=== PATIENT | female | born 1985 | race Caucasian/White ===

== ENCOUNTER 2020-03-20 11:36 | Outpatient (REF) | payer OTHER, SELFPAY ==
[2020-03-20 12:19] LABS: MANUAL DIFF FLAG NO
[2020-03-20 12:24] LABS: Basophils Percent Auto 0.4 % (0-2); Eosinophils Absolute Auto 0.1 X10*3/uL (0.0-0.4); Eosinophils Percent Auto 1.3 % (0-4); Hematocrit 39.2 % (37-47); Imm Gran Abs Auto 0.02 X10*3/uL (0.00-0.03); Imm Gran Pct Auto 0.3 % (0.0-0.4); Lymphocytes Absolute Auto 1.8 X10*3/uL (1.2-4.9); Lymphocytes Percent Auto 22.1 % (20-40); Mean Corpuscular HGB Conc 33.2 g/dl (31.0-35.0); Mean Corpuscular Hemoglobin 30.2 pg (27.0-33.0); Mean Platelet Volume 9.9 fL (9.4-12.3); Monocytes Absolute Auto 0.6 X10*3/uL (0.1-1.2); Monocytes Percent Auto 7.7 % (2-11); Neutrophils Absolute Auto 5.4 X10*3/uL (2.0-8.3); Neutrophils Percent Auto 68.2 % (45-73); Platelet Count 236 X10*3/uL (160-400); Red Blood Count 4.31 X10*6/uL (4.20-5.50); Red Cell Distribution Width 12.3 % (11.0-16.0); White Blood Count 7.9 X10*3/uL (4.8-10.8)
[2020-03-20 13:09] LABS: Alanine Aminotransferase 26 U/L (0-31); Albumin Level 4.4 g/dL (3.5-5.0); Alkaline Phosphatase 78 U/L (39-117); Anion Gap 13 (12-20); Aspartate Amino Transferase 27 U/L (5-31); Bilirubin Total 0.4 mg/dL (0.0-1.0); Blood Urea Nitrogen 15 mg/dL (9-16); Calcium 9.4 mg/dL (8.4-10.2); Carbon Dioxide 27 mmol/L (22-29); Chloride 101 mmol/L (96-108); Cholesterol 211 mg/dL; Estimated Glomerular Filt Rate > 60; Glucose Fasting 90 mg/dL (60-99); HDL Cholesterol 85 mg/dL; LDL Cholesterol Calculated 112 mg/dl; Potassium 4.8 mmol/l (3.3-5.1); Sodium 136 mmol/L (135-145); Total Protein 7.6 g/dL (6.5-8.0); Triglycerides 74 mg/dL
[2020-03-20 13:30] LABS: TSH reflex Free T4 0.58 mIU/mL (0.32-4.0)
== END 2020-03-20 11:37 | disposition home or self-care (01) ==
LOC: HO.LAB 11:36
PROVIDERS: PCP Family Medicine; Visit Provider Family Medicine
DX: Z00.00 Encounter for general adult medical examination without abnormal findings (principal)
CPT/HCPCS: 36415; 80053; 80061; 84443; 85025

== ENCOUNTER 2020-04-26 11:39 | Outpatient (REF) | payer OTHER, SELFPAY ==
[2020-04-26 15:28] LABS: Syphilis Screen Nonreactive (Nonreactive)
[2020-04-27 08:41] LABS: BV Int Neg Control Negative (Negative); BV Int Pos Control Positive (Positive)
[2020-04-27 09:10] LABS: HBsAGNum1 0.58 S/CO (0.00-0.99); HIV AB/AG Nonreactive (Nonreactive); HIV Num 1 0.07 S/CO (0.00-0.99); Hepatitis B Surface Antigen Negative (Negative); ~HepC Num1 0.17 S/CO (0.00-0.79); ~Hepatitis C Antibody Nonreactive (Nonreactive)
[2020-04-28 18:32] LABS: C. trachomatis RNA TMA DETECTED (NOT DETECTED); N. gonorrhoeae RNA TMA NOT DETECTED (NOT DETECTED)
[2020-05-01 12:53] LABS: HPV mRNA E6/E7 Not Detected (Not Detected)
== END 2020-04-26 11:40 | disposition home or self-care (01) ==
LOC: HO.LAB 11:39
PROVIDERS: PCP Family Medicine; Visit Provider Advanced Practice Midwife
DX: Z01.419 Encounter for gynecological examination (general) (routine) without abnormal findings (principal); F41.8 Other specified anxiety disorders; Z20.2 Contact with and (suspected) exposure to infections with a predominantly sexual mode of transmission; Z88.5 Allergy status to narcotic agent; Z97.5 Presence of (intrauterine) contraceptive device
CPT/HCPCS: 36415; 86780; 86803; 87340; 87389; 87480; 87491; 87510; 87591; 87624; 87625; 87660; 88141; 88142; 99395

== ENCOUNTER 2020-06-09 09:57 | Outpatient (REF) | payer OTHER, SELFPAY ==
[2020-06-09 12:57] LABS: Syphilis Screen Nonreactive (Nonreactive)
[2020-06-10 12:04] LABS: BV Int Neg Control Negative (Negative); BV Int Pos Control Positive (Positive)
[2020-06-11 03:51] LABS: C. trachomatis RNA TMA NOT DETECTED (NOT DETECTED); N. gonorrhoeae RNA TMA NOT DETECTED (NOT DETECTED)
[2020-06-12 04:14] LABS: HBc Num1 0.09 S/CO (0.00-0.79); HIV AB/AG Nonreactive (Nonreactive); HIV Num 1 0.07 S/CO (0.00-0.99); Hepatitis B Core Antibody Nonreactive (Nonreactive)
[2020-06-12 04:27] LABS: ~HepC Num1 0.18 S/CO (0.00-0.79); ~Hepatitis C Antibody Nonreactive (Nonreactive)
== END 2020-06-09 09:58 | disposition home or self-care (01) ==
LOC: HO.LAB 09:57
PROVIDERS: PCP Family Medicine; Visit Provider Advanced Practice Midwife
DX: Z30.432 Encounter for removal of intrauterine contraceptive device (principal); Z20.2 Contact with and (suspected) exposure to infections with a predominantly sexual mode of transmission
CPT/HCPCS: 36415; 58301; 86704; 86780; 86803; 87389; 87480; 87491; 87510; 87591; 87660

== ENCOUNTER 2020-08-28 14:44 | Outpatient (REF) | payer OTHER, SELFPAY ==
[2020-08-29 08:58] LABS: BV Int Neg Control Negative (Negative); BV Int Pos Control Positive (Positive)
== END 2020-08-28 14:45 | disposition home or self-care (01) ==
LOC: HO.LAB 14:44
PROVIDERS: PCP Family Medicine; Visit Provider Advanced Practice Midwife
DX: N76.0 Acute vaginitis (principal); B96.89 Other specified bacterial agents as the cause of diseases classified elsewhere; Z30.09 Encounter for other general counseling and advice on contraception
CPT/HCPCS: 87480; 87510; 87660; 99212

== ENCOUNTER 2021-04-17 08:07 | Outpatient (REF) | payer OTHER, SELFPAY ==
[2021-04-17 10:17] LABS: HBc Num1 0.09 S/CO (0.00-0.79); Hepatitis B Core Antibody Nonreactive (Nonreactive); ~HepC Num1 0.14 S/CO (0.00-0.79); ~Hepatitis C Antibody Nonreactive (Nonreactive)
[2021-04-17 10:38] LABS: HIV AB/AG Nonreactive (Nonreactive); HIV Num 1 0.08 S/CO (0.00-0.99)
[2021-04-17 11:34] LABS: CT PCR NOT DETECTED (Not Detect.); NG PCR NOT DETECTED (Not Detect.)
[2021-04-18 07:51] LABS: Syphilis Screen Nonreactive (Nonreactive)
== END 2021-04-17 08:08 | disposition home or self-care (01) ==
LOC: HO.LAB 08:07
PROVIDERS: PCP Family Medicine; Visit Provider Advanced Practice Midwife
DX: Z30.011 Encounter for initial prescription of contraceptive pills (principal); Z20.2 Contact with and (suspected) exposure to infections with a predominantly sexual mode of transmission
CPT/HCPCS: 36415; 81025; 86704; 86780; 86803; 87389; 87491; 87591

== ENCOUNTER 2022-08-14 08:51 | Outpatient (REF) | payer OTHER, SELFPAY | END 2022-08-14 08:52 | disposition home or self-care (01) | LOC: HO.LNP 08:51 | PROVIDERS: PCP Family Medicine; Visit Provider Advanced Practice Midwife | DX: Z13.89 Encounter for screening for other disorder (principal) ==

== ENCOUNTER 2022-08-14 09:30 | Outpatient (REF) | payer OTHER, SELFPAY ==
[2022-08-14 11:27] LABS: HBc Num1 0.12 S/CO (0.00-0.79); HIV AB/AG Nonreactive (Nonreactive); HIV Num 1 0.07 S/CO (0.00-0.99); Hepatitis B Core Antibody Nonreactive (Nonreactive); ~HepC Num1 0.15 S/CO (0.00-0.79); ~Hepatitis C Antibody Nonreactive (Nonreactive)
[2022-08-14 11:29] LABS: Syphilis Screen Nonreactive (Nonreactive)
[2022-08-14 12:37] LABS: CT PCR NOT DETECTED (Not Detect.); NG PCR NOT DETECTED (Not Detect.)
== END 2022-08-14 09:31 | disposition home or self-care (01) ==
LOC: HO.LAB 09:30
PROVIDERS: PCP Family Medicine; Visit Provider Advanced Practice Midwife
DX: Z11.4 Encounter for screening for human immunodeficiency virus [HIV] (principal); Z20.2 Contact with and (suspected) exposure to infections with a predominantly sexual mode of transmission
CPT/HCPCS: 0353U; 86704; 86780; 86803; 87389

== ENCOUNTER → 2022-09-06 09:26 | Outpatient (BNVA) | payer OTHER, SELFPAY | PROVIDERS: PCP Family Medicine; Visit Provider Advanced Practice Midwife | DX: Z30.430 Encounter for insertion of intrauterine contraceptive device (principal) | CPT/HCPCS: 58300; 81025 ==

== ENCOUNTER 2022-10-15 11:42 | Outpatient (AMB) | payer OTHER, SELFPAY ==
[2022-10-15 11:43] VITALS: BP 112/70; BMI 29.3
--- NOTE | 2022-10-15 11:43 | MHC.OFFVIS ---
Intake Vital Signs 10/15/22 11:43 Height 5 ft 2 in Weight 160 lb BMI 29.3 BP 112/70 Intake Visit Reasons: IUD Check Intake Note: The patient agreed to use of a curator medical museum during this encounter. Scribed for HILTON Archer by Maria Elena Puente curator medical museum, on 10/15/2022 at 11:53 am EST. Metallic Yarn Slitting Machine Operator: Metallic Yarn Slitting Machine Operator Present (Keli) Allergies latex Allergy (Unknown, Verified 10/15/22 11:45) Unknown hydromorphone [From DILAUDID] Adverse Reaction (Intermediate, Verified 10/15/22 11:45) ANXIETY HPI HPI Comments History of Present Illness Details She is presenting for IUD check. She had the Mirena IUD placed on 09/06/22. Is experiencing occasional spotting. She has no concerns. She denies pain, abnormal discharge, or other concerns. 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 Gender identity: Female Female Reproductive History Menstrual Age of Menarche: 11 control method: progestin IUCD (Mirena 09/06/22; IUD strings visible 10/15/22) Physical Exam Vital Signs: Last Vital Signs BP 112/70 10/15/22 11:43 BMI result Body Mass Index 29.3 Const General: cooperative, healthy appearing, comfortable, no acute distress, well developed, alert, awake and Physically active Other: General: Yes bladder normal to palpation External Female Exam: normal external appearance and normal appearance of the urethra Speculum Exam - Vagina: normal appearance of the vagina, normal palpation and normal vaginal discharge Speculum Exam - Cervix: normal appearance of the cervix, normal palpation and Other cervical findings present (IUD strings visible; small amount of dark red blood) Bimanual exam- vagina & uterus: normal bimanual exam, normal palpation, bladder normal to palpation and normal palpation Bimanual Exam- Adnexa, other: normal adnexae and no masses Assessment & Plan Assessment & Plan (1) IUD surveillance: Code(s): Z30.431 - Encounter for routine checking of intrauterine contraceptive device Plan: Discussed: Bleeding tends to taper down, some women do not bleed at all for months, some have unscheduled and random bleeding. Monitor bleeding and cramps for the next 1-2 months and contact office with any concerns or questions. All of her questions and concerns were addressed to the best of my ability and shared decision making. She is agreeable to plan of care. Coding Level of Care Code Est Pt Level 2 (47032) Diagnoses IUD surveillance Z30.431
== END 2022-10-15 12:11 | disposition home or self-care (01) ==
LOC: HO.HWS 11:42
PROVIDERS: PCP Family Medicine; Visit Provider Advanced Practice Midwife
DX: Z30.431 Encounter for routine checking of intrauterine contraceptive device (principal)
CPT/HCPCS: 99212

== ENCOUNTER → 2022-10-15 11:42 | Outpatient (BNVA) | payer OTHER, SELFPAY | PROVIDERS: PCP Family Medicine; Visit Provider Advanced Practice Midwife | DX: Z30.431 Encounter for routine checking of intrauterine contraceptive device (principal) | CPT/HCPCS: 99212 ==

== ENCOUNTER 2023-07-05 10:58 | Outpatient (AMB) | payer OTHER, SELFPAY ==
[2023-07-05 11:04] VITALS: BP 148/90; PULSE 83; TEMP 36.8; O2SAT 99
--- NOTE | 2023-07-05 11:04 | MHC.OFFWIV ---
Intake Vital Signs 07/05/23 11:04 Height 5 ft 2 in BP 148/90 H Blood Pressure Location Rt brachial Position Sitting Pulse 83 Pulse Source Pulse Oximeter Temp 98.3 F Temp Source Oral Pulse Oximetry (%) 99 Oxygen Delivery Method Room Air Intake Visit Reasons: Severe Head Pain Vomit Intake Note: Pt is here for 5 days of migraine pain she has been vomiting dizziness blurry vision and she can not sleep she has used ice packs and heat Excedrin that helps but then it comes right back pt wakes up from the pain Patient Tobacco Use Status: Never used Tobacco Allergies latex Allergy (Unknown, Verified 07/05/23 11:07) Unknown hydromorphone [From DILAUDID] Adverse Reaction (Intermediate, Verified 07/05/23 11:07) ANXIETY HPI Severe Head Pain Vomit HPI Details Patient is a 37-year-old female comes to the walk-in clinic complaining of severe posterior headache and neck pain, associated with nausea and vomiting, dizziness, blurred vision and elevated blood pressure on home readings, for the last few days. She states her last reading was 150/90 at home. She reports history of migraines, but they are usually resolved within a day. She reports that her usual regimen of anti-inflammatories is not helping, nor is getting adequate sleep, PFSH Medical History Anxiety Depression Lactating mother Surgical History Hx of wisdom tooth extraction Family History Father Asthma Mother Asthma Acute liver failure Paternal Grandfather Colon cancer Paternal Uncle Colon cancer Maternal Grandmother Vulva cancer Social History Housing: House Alcohol intake: current Alcohol intake frequency: holidays/special occasions only Patient Tobacco Use Status: Never used Tobacco e-Cigarette/Vaping Use: Never Used service: No Current occupational status: employed 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 Gender identity: Female Female Reproductive History Menstrual Age of Menarche: 11 Review of Systems Const All systems reviewed & are unremarkable except as noted in HPI and below Physical Exam Vital Signs: Last Vital Signs Temp 98.3 F 07/05/23 11:04 Pulse 83 07/05/23 11:04 BP 148/90 H 07/05/23 11:04 Pulse Ox 99 07/05/23 11:04 Oxygen Delivery Method Room Air 07/05/23 11:04 Const General: cooperative, alert, awake, Physically active, in distress, anxious and well groomed; No comfortable, diaphoretic, ill appearing, intoxicated appearing, poor hygiene or tired appearing Nutritional Appearance: average body habitus Orientation/consciousness: patient oriented x3 Limitations: no limitations HEENT Head: Yes normal to inspection, Yes normocephalic and Yes atraumatic Face and sinus: Yes normal facial exam, Yes sinuses nontender and Yes face symmetric Eyes General: appearance normal, both eyes and all related structures Resp Effort & Inspection: normal respiratory effort Cardio Rate: regular rate Skin Other: Good color, warm and dry Neuro General: patient oriented x3, gait normal, tone normal and moves all extremities Cranial nerves: Yes CN's II-XII intact bilaterally Cognition (Neuro): normal cognition Motor exam (neuro): 5/5 motor strength present throughout and no tremor noted Coordination: Romberg test negative Psych Appearance: grossly normal Mental Status: mental status grossly normal Speech and movement: Normal speech and movement present Affect: normal affect Attitude: cooperative Thought process: Normal thought process present Insight: Good insight present (Psych) Judgement: Good judgement present (Psych) Assessment & Plan Assessment & Plan (1) Headache: Code(s): R51.9 - Headache, unspecified Qualifiers: Headache chronicity pattern: acute headache Intractability: intractable Headache type: unspecified Qualified Code(s): R51.9 - Headache, unspecified Plan: Patient is a 37-year-old female comes to the walk-in clinic with a persistent severe posterior headache for the last few days, associated with radicular neck pain, nausea and vomiting, dizziness, blurred vision and elevated blood pressure on home readings. No known underlying trigger, although she does have history of migraines in the past which usually resolve quickly with NSAIDs and rest. While she has no neuro deficits on exam today, her presentation is concerning for having the worst headache in her life and it has been persistent for 5 days now associated with elevated blood pressure readings. This might be due to her NSAID use, however we discussed that the safest option was to to go to the emergency department for evaluation and further treatment, which she was amenable to. Family member with her who is going to transport her. Expect was called over to [facility]. Coding Level of Care Code Est Pt Level 4 (05278) Diagnoses Acute intractable headache, unspecified headache type R51.9 Headache chronicity pattern: acute headache Intractability: intractable Headache type: unspecified
== END 2023-07-05 12:25 | disposition home or self-care (01) ==
PROVIDERS: PCP Family Medicine; Visit Provider Physician Assistant Medical
DX: R51.9 Headache, unspecified (principal)
CPT/HCPCS: 99051; 99214

== ENCOUNTER 2023-07-05 11:47 | Emergency (ER) | payer OTHER, SELFPAY ==
--- NOTE | ~2023-07-05 | CT_ITS ---
EXAMINATION: CT HEAD WITHOUT CONTRAST CLINICAL INFORMATION: Atypical migraine COMPARISON: None available. TECHNIQUE: Contiguous axial imaging was performed from the skull base to vertex without intravenous administration of contrast. This CT examination was performed using dose optimization techniques as appropriate, variously including the following: *Automated exposure control *Adjustment of mA and/or kV according to patient size (this includes techniques or standardized protocols for targeted exams where dose is matched to indication/reason for exam; i.e. extremities or head) *Use of iterative reconstruction technique DLP: 633 mGy-cm FINDINGS: No acute intracranial hemorrhage or infarct. The resendiz-white matter differentiation is preserved. No midline shift or hydrocephalus. No acute extra-axial fluid collections. The osseous structures are unremarkable. No orbital pathology. The paranasal sinuses and mastoid air cells are clear. CT/CT head/brain wo IV con IMPRESSION: No acute intracranial pathology.
[2023-07-05 12:16] VITALS: BP 159/90; PULSE 76; RESP 18; TEMP 36.7; O2SAT 100; BMI 33.6
--- NOTE | 2023-07-05 12:16 | ED.GENADULT ---
HPI - General Adult General Chief complaint: Headache Stated complaint: migraine Time Seen by Provider: 07/05/23 12:38 Source: patient Mode of arrival: ambulatory Limitations: no limitations History of Present Illness HPI narrative: 37-year-old female with a history of migraine headaches, gastritis, GERD who presents the ER for evaluation of a migraine headache that started 5 days ago. Patient states the headache started on Friday morning after drinking alcohol on Friday. She denies any falls or trauma. She states her headache usually goes away within 24 hours. This headache has not gone away and has been waxing and waning all week. It briefly improves with Excedrin migraine however comes right back after the medication wears off. She reports associated blurry vision, nausea, vomiting. She states the pain is posterior in the occipital area and throbbing in nature. She states her migraine headaches have never lasted this long before. MD complaint: Migraine headache Onset (ago): day(s) (5) Location: head Radiation: neck Severity: severe Severity scale (1-10): 8 Quality: other (throbbing) Pain Consistency: intermittent Relieving factors: medication Exacerbating factors: none Associated symptoms: nausea/vomiting Treatments prior to arrival: NSAID Related Data Home Medications Medication Instructions Recorded Confirmed [id number] 27 mg-folic pkg PO 08/14/22 08/14/22 acid 800 mcg-dha 200 mg-lut.oral pack levonorgestrel 21 mcg/24 hours (8 intrauterine 10/15/22 yrs) 52 mg intrauterine device (Mirena) Allergies Allergy/AdvReac Type Severity Reaction Status Date / Time latex Allergy Unknown Unknown Verified 07/05/23 11:07 hydromorphone [From DILAUDID] AdvReac Intermediate ANXIETY Verified 07/05/23 11:07 Review of Systems Review of Systems: Yes all other systems are reviewed and are negative PMFSH Past Medical History Medical History Anxiety Depression Lactating mother Surgical History Hx of wisdom tooth extraction Family History Family History Father Asthma Mother Asthma Acute liver failure Paternal Grandfather Colon cancer Paternal Uncle Colon cancer Maternal Grandmother Vulva cancer Social History Social History Housing: House Alcohol intake: current Alcohol intake frequency: holidays/special occasions only Patient Tobacco Use Status: Never used Tobacco Smoked in Last 30 Days: No e-Cigarette/Vaping Use: Never Used Use of substances other than those prescribed or required for medical reasons: No Advance Directives: No Advance Directives Information Provided: No Patient : No service: No Current occupational status: employed 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 Oriented X3. No acute distress. Head: normocephalic, atraumatic. Eyes: Pupils equal, round and reactive to light. ENT: Pharynx normal. No tonsillar swelling or exudate. Neck: Normal inspection. Neck supple. No nuchal rigidity. Right normal range of motion. Soft tissue tenderness at the base of the occiput CVS: Normal heart rate and rhythm. Pulses normal. Respiratory: No respiratory distress. Breath sounds normal. Abdomen: Soft and nontender. +BS x4 Skin: Skin warm and dry. Normal skin color. Normal skin turgor. No rashes. Extremities: No lower extremity edema. No joint swelling. Neuro/psych: Oriented X 3. No motor deficit. No sensory deficit. CN II-XII intact. Normal speech and cognition. Steady gait. Course Course Course Narrative: This is an RME: Additional HPI, ROS, PE not included below will be deferred to primary provider. 37 year old female presents w/ occipital headache X5 days. Tenderness and tension to scalp w/ blurred vision. Has taken over 30 Excedrin in 24 hours. Reports she gets migraines and this is nothing like her typical. It woke her from her sleep, woke up vomiting w/ b/l blurred vision. Typical migraines resolve w/ Excedrin. plan- head ct. Nihss- 0 Medications Administered Discontinued Medications Generic Name Dose Route Start Last Admin Trade Name Freq PRN Reason Stop Dose Admin Diphenhydramine HCl 50 mg 07/05/23 12:15 07/05/23 13:03 Diphenhydramine Hcl 25 Mg Capsule PO 07/05/23 12:16 50 mg ONCE ONE Administration Ketorolac Tromethamine 30 mg 07/05/23 12:15 07/05/23 13:03 Ketorolac Tromethamine 30 Mg/Ml Vial IM 07/05/23 12:16 30 mg ONCE ONE Administration Metoclopramide HCl 10 mg 07/05/23 12:15 07/05/23 13:03 Metoclopramide Hcl 10 Mg Tablet PO 07/05/23 12:16 10 mg ONCE ONE Administration Medical Decision Making Medical Decision Making [facility] Narrative: 37-year-old female presenting to the ER for evaluation of a migraine headache for the last 5 days. Neurologically intact on examination. CT scan was performed from triage, normal. Labs are unremarkable. Low clinical suspicion for infectious process such as meningitis, encephalitis. She has responded well to Reglan, Benadryl, Toradol. Feels 1000x better CT scan normal. Patient stable for discharge home Differential Diagnosis Differential Diagnoses: The differential diagnosis associated with the presentation includes Migraine headache, tension headache, cluster headache, hangover, low clinical suspicion for encephalitis, meningitis Admission/Observation Consideration of admission/observation: Escalation of care including admission/observation considered Lab Data [facility] Lab Attestation statement: I reviewed the patient's lab results. 07/05/23 12:31 07/05/23 12:34 Labs: Lab Results 07/05/23 07/05/23 Range/Units 12:31 12:34 WBC 11.4 H (4.8-10.8) X10*3/uL RBC 4.45 (4.20-5.50) X10*6/uL Hgb 13.2 (12.0-16.0) g/dl Hct 38.9 (37.0-47.0) % MCV 87.4 (80.0-98.0) fL MCH 29.7 (27.0-33.0) pg MCHC 33.9 (31.0-35.0) g/dl RDW 12.5 (11.0-16.0) % Plt Count 234 (160-400) X10*3/uL MPV 9.4 (9.4-12.3) fL Immature Gran % (Auto) 0.2 (0.0-0.4) % Neut % (Auto) 68.8 (45-73) % Lymph % (Auto) 22.2 (20-40) % [place] % (Auto) 7.7 (2-11) % Eos % (Auto) 0.8 (0-4) % Baso % (Auto) 0.3 (0-2) % Lymph # (Auto) 2.5 (1.2-4.9) X10*3/uL [place] # (Auto) 0.9 (0.1-1.2) X10*3/uL Eos # (Auto) 0.1 (0.0-0.4) X10*3/uL Baso # (Auto) 0.0 (0.0-0.2) X10*3/uL Abs Immat Gran (auto) 0.02 (0.00-0.03) X10*3/uL Absolute Neuts (auto) 7.8 (2.0-8.3) x10*3/uL Absolute Nucleated RBC 0.000 (0.0-0.012) X10*3/uL Nucleated RBC % (auto) 0.0 (0.0-0.2) /100WBC ESR 14 (0-20) MM/HR Sodium 138 (135-145) mmol/L Potassium 3.8 (3.3-5.1) mmol/L Chloride 105 (96-108) mmol/L Carbon Dioxide 23 (22-29) mmol/L Anion Gap 14 (12-20) BUN 14 (9-16) mg/dL Creatinine 0.83 (0.5-1.4) mg/dL Estim Creat Clear Calc 90.1 Estimated GFR > 60 Random Glucose 93 (60-115) mg/dL Calcium 9.3 (8.4-10.2) mg/dL Total Bilirubin 0.5 (0.0-1.0) mg/dL AST 54 H (5-31) U/L ALT 102 H (0-31) U/L Alkaline Phosphatase 93 (39-117) U/L C-Reactive Protein 0.57 H (< or = 0.50) mg/dL Total Protein 7.9 (6.5-8.0) g/dL Albumin 4.2 (3.5-5.0) g/dL Independent Interpretation I performed an independent interpretation of an: CT Scan Interpretation: No space-occupying lesion, bleed or edema appreciated, agree with radiology read. Radiology Impression Discussion of test interpretation with radiology: I have reviewed the radiologist's reading. Radiologist Impression: EXAMINATION: CT HEAD WITHOUT CONTRAST CLINICAL INFORMATION: Atypical migraine COMPARISON: None available. TECHNIQUE: Contiguous axial imaging was performed from the skull base to vertex without intravenous administration of contrast. This CT examination was performed using dose optimization techniques as appropriate, variously including the following: *Automated exposure control *Adjustment of mA and/or kV according to patient size (this includes techniques or standardized protocols for targeted exams where dose is matched to indication/reason for exam; i.e. extremities or head) *Use of iterative reconstruction technique DLP: 633 mGy-cm FINDINGS: No acute intracranial hemorrhage or infarct. The resendiz-white matter differentiation is preserved. No midline shift or hydrocephalus. No acute extra-axial fluid collections. The osseous structures are unremarkable. No orbital pathology. The paranasal sinuses and mastoid air cells are clear. CT/CT head/brain wo IV con IMPRESSION: No acute intracranial pathology. External Record Review External record reviewed: Outpatient record, Prior outpatient labs and Prior outpatient radiology Prescription Management I considered prescription management with: Pain Medication Critical Care Time Critical Care Time Critical Care Time: No Discharge Plan Discharge Clinical Impression: Migraine Patient Disposition: Home, Self-Care Instructions: Migraine Headache (ED) Additional Instructions: Your CT scan and lab workup today were unremarkable. Rest and drink plenty of fluids. Recommend Tylenol 975 mg every 6 8 hours as needed for headache. Follow-up with your doctor. If you develop new or worsening symptoms call 911 or come back to the ER for further evaluation. Prescriptions: No Action Mirena 21 mcg/24 hours (8 yrs) 52 mg intrauterine device 1 device intrauterine ONCE Qty: 1 0RF Mirena 21 mcg/24 hours (8 yrs) 52 mg intrauterine device intrauterine PNV [id number] 27 mg iron-800 mcg-200 mg combo pack PO Referrals: Kyler Moon MD [Primary Care Provider] -
[2023-07-05 12:39] LABS: MANUAL DIFF FLAG NO
[2023-07-05 12:41] LABS: Basophils Percent Auto 0.3 % (0-2); Eosinophils Absolute Auto 0.1 X10*3/uL (0.0-0.4); Eosinophils Percent Auto 0.8 % (0-4); Hematocrit 38.9 % (37.0-47.0); Hemoglobin 13.2 g/dl (12.0-16.0); Imm Gran Abs Auto 0.02 X10*3/uL (0.00-0.03); Imm Gran Pct Auto 0.2 % (0.0-0.4); Lymphocytes Absolute Auto 2.5 X10*3/uL (1.2-4.9); Lymphocytes Percent Auto 22.2 % (20-40); Mean Corpuscular HGB Conc 33.9 g/dl (31.0-35.0); Mean Corpuscular Hemoglobin 29.7 pg (27.0-33.0); Mean Corpuscular Volume 87.4 fL (80.0-98.0); Mean Platelet Volume 9.4 fL (9.4-12.3); Monocytes Absolute Auto 0.9 X10*3/uL (0.1-1.2); Monocytes Percent Auto 7.7 % (2-11); Neutrophils Absolute Auto 7.8 x10*3/uL (2.0-8.3); Neutrophils Percent Auto 68.8 % (45-73); Platelet Count 234 X10*3/uL (160-400); Red Blood Count 4.45 X10*6/uL (4.20-5.50); Red Cell Distribution Width 12.5 % (11.0-16.0); White Blood Count 11.4 X10*3/uL (4.8-10.8)
[2023-07-05] MEDS: Ketorolac Tromethamine 30 MG/ML VIAL IM (13:03)
[2023-07-05] MEDS: diphenhydrAMINE HCL 25 MG CAPSULE 50 MG PO (13:03)
[2023-07-05] MEDS: Metoclopramide HCl 10 MG TABLET PO (13:03)
--- NOTE | 2023-07-05 13:03 | PC.NURSE ---
medication administered per provider order. effectiveness pending.
[2023-07-05 13:17] LABS: Alanine Aminotransferase 102 U/L (0-31); Albumin Level 4.2 g/dL (3.5-5.0); Alkaline Phosphatase 93 U/L (39-117); Anion Gap 14 (12-20); Aspartate Amino Transferase 54 U/L (5-31); Bilirubin Total 0.5 mg/dL (0.0-1.0); Blood Urea Nitrogen 14 mg/dL (9-16); C Reactive Protein 0.57 mg/dL (< or = 0.50); Calcium 9.3 mg/dL (8.4-10.2); Carbon Dioxide 23 mmol/L (22-29); Chloride 105 mmol/L (96-108); Creatinine Clr Calc Pharmacy 90.1; Estimated Glomerular Filt Rate > 60; Glucose Random 93 mg/dL (60-115); Potassium 3.8 mmol/L (3.3-5.1); Sodium 138 mmol/L (135-145); Total Protein 7.9 g/dL (6.5-8.0)
[2023-07-05 13:19] LABS: Erythrocyte Sedimentation Rate 14 MM/HR (0-20)
--- NOTE | 2023-07-05 14:02 | PC.NURSE ---
pt verbalizing pain level decreased post medication administration. pt resting comfortably in the bed in no apparent distress at this time. respirations remain even and unlabored. plan of care ongoing. call wheeler placed within reach.
[2023-07-05 14:17] VITALS: BP 120/75; PULSE 70; RESP 14; O2SAT 98
[2023-07-05 14:52] VITALS: BP 120/75; PULSE 70; RESP 14; TEMP 36.7; O2SAT 98
== END 2023-07-05 14:54 | disposition home or self-care (01) ==
PROVIDERS: Physician Assistant; Emergency Provider Student in an Organized Health Care Education/Training Program; PCP Family Medicine
DX: G43.909 Migraine, unspecified, not intractable, without status migrainosus (principal)
CPT/HCPCS: 36415; 70450; 80053; 85025; 85652; 86140; 96372; 99284; J1885

== ENCOUNTER 2023-08-13 08:18 | Outpatient (AMB) | payer OTHER, SELFPAY ==
--- NOTE | 2023-08-13 08:21 | MHC.PC.OV ---
Vital Signs 08/13/23 08:24 Height 5 ft 1 in Weight 174 lb 4 oz BMI 32.9 BP 124/78 Blood Pressure Location Rt brachial Position Sitting Respiration 13 Pulse 78 Pulse Source Pulse Oximeter Temp 97 F Temp Source Temporal Artery Scan Pulse Oximetry (%) 98 Oxygen Delivery Method Room Air Intake Visit Reasons: Migraine followup from ED Intake Note: patient does not have any current concerns. Patient was seen at [facility]. 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: No Accompanied by: Son Allergies latex Allergy (Unknown, Verified 08/13/23 08:29) Unknown hydromorphone [From DILAUDID] Adverse Reaction (Intermediate, Verified 08/13/23 08:29) ANXIETY Medication List - Last Reconciled 08/13/23 by Kyler Moon MD levonorgestrel (Mirena) intrauterine PNV 424-asgl-nyjxk-dha-lutein 27 mg iron-800 mcg-200 mg pkgs PO Tobacco use date assessed: 08/13/23 Dental Screening Dental Screen Date: 08/13/23 Did you have a dental visit in the last 12 months?: No Did you have a dental problem in the last 6 months where you did not have access to dental care?: No Was dental information given to patient?: Patient has dentist HPI Migraine followup from ED HPI Details 37 y/o female presents to f/u ED visit for migraine 07/05/23. CT scan and lab work-up unremarkable. They had recommended Tylenol 975 mg every 6-8 hours as needed. Pt reports ongoing migraines/headaches daily - she reports she had migraines for 17 days in a row before it got too uncomfortable and had to go to the emergency department. Pt notes she is . HPI Comments History of Present Illness Details Documentation assistance for Kyler Moon MD, was provided by James Leigh,? Geography Teacher on 08/13/2023 8:43 AM SIM. I, Dr. Moon, have read, observed, and verified documentation. PFSH Medical History Lactating mother Depression Anxiety Surgical History Hx of wisdom tooth extraction Family History Father Asthma Mother Asthma Acute liver failure Paternal Grandfather Colon cancer Paternal Uncle Colon cancer Maternal Grandmother Vulva cancer Social History Household Members: Family Both parents involved: No Caregiver staying overnight: No Housing: House Are you a primary animal care assistant to a significant other at home: No Do you presently have visiting nurse or other home services: No 75 years or older and lives alone: No Alcohol intake: current Alcohol intake frequency: holidays/special occasions only Patient Tobacco Use Status: Never used Tobacco e-Cigarette/Vaping Use: Never Used Encourage to stop smoking at least 8hrs prior to surgery: No Use of substances other than those prescribed or required for medical reasons: No Currently Displaying Signs/Symptoms of Drug Intoxication Withdrawal: No Any prior treatment program specific to substance use: No Have you been hit, kicked, punched, or otherwise hurt by someone within the past year? 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 Gender identity: Female Cognitive needs: No Hearing needs: No Vision needs: No Female Reproductive History Menstrual Age of Menarche: 11 Review of Systems Const Denies chills, Denies fatigue, Denies fever(s), Reports headache(s) and Denies weakness ENT Denies dizziness and Reports headache(s) Card Denies dyspnea Resp Denies cough, Denies dyspnea, Denies wheezing and Denies other (shortness of breath) Musc Denies numbness and Denies tingling Neuro Denies dizziness, Reports headache(s), Denies numbness, Denies tingling and Denies weakness Psych Denies anxiety and Denies depression Endo Denies fatigue Aller/Immun Denies wheezing Physical exam (Primary Care) Vital Signs: Last Vital Signs Temp 97 F 08/13/23 08:24 Pulse 78 08/13/23 08:24 Resp 13 08/13/23 08:24 BP 124/78 08/13/23 08:24 Pulse Ox 98 08/13/23 08:24 Oxygen Delivery Method Room Air 08/13/23 08:24 BMI result Body Mass Index 32.9 Tobacco/Smoking Status: Tobacco use Status Tobacco use date assessed 08/13/23 08/13/23 08:32 Patient Tobacco Use Status Never used Tobacco 08/13/23 08:31 e-Cigarette/Vaping Use Never Used 08/13/23 08:31 Const General: well developed; No acute distress Nutritional Appearance: well nourished Orientation/consciousness: patient oriented x3 HENMT Head: Yes normocephalic and Yes atraumatic Eyes General: appearance normal, both eyes and all related structures Pupils: Equal, round and reactive pupils present EOM: EOMs intact bilaterally Resp Effort & Inspection: normal respiratory effort Neuro General: patient oriented x3 and gait normal Cranial nerves: Yes Equal, round and reactive pupils present Psych Affect: normal affect Assessment and Plan Assessment & Plan (1) Migraines: Code(s): G43.909 - Migraine, unspecified, not intractable, without status migrainosus Plan: Patient?is?getting?migraine?headaches?every?day Head?CT?at?the?ED?was?negative Advised?her?to?wean?off?of?any?other?pain?medications?such?as?ibuprofen?and?Tylenol We?discussed?and?considered?topiramate?however,?patient?is?.??Evidence?is?lacking?for?safety?or?harm?with?this?medication?but?is?excreted?in?breast?milk. Will?try?metoprolol?50?mg?daily.??She?can?start?with?25?mg?daily?and?titrate?up?if?needed. Will?follow-up?in?a?month. Of?note,?patient?does?have?a?log?of?blood?pressures?which?shows?some?elevated?blood?pressures?as?well.??BPs?ranging?in?140/90s?at?home Medications: New metoprolol succinate ER 50 mg PO DAILY 30 days 30 tabs 1RF Coding Level of Care Code Est Pt Level 3 (15895) Diagnoses Migraines G43.909
[2023-08-13 08:24] VITALS: BP 124/78; PULSE 78; RESP 13; TEMP 36.1; O2SAT 98; BMI 32.9
== END 2023-08-13 09:12 | disposition home or self-care (01) ==
PROVIDERS: PCP Family Medicine; Visit Provider Family Medicine
DX: G43.909 Migraine, unspecified, not intractable, without status migrainosus (principal)
CPT/HCPCS: 99213

== ENCOUNTER 2023-08-19 09:19 | Outpatient (AMB) | payer OTHER, SELFPAY ==
[2023-08-19 09:23] VITALS: BP 122/70; BMI 32.9
--- NOTE | 2023-08-19 09:23 | A.OFFVIS_ITS ---
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 Doing well with no concerns. Recent migraines, new treatment, feeling better. She tries to eat healthy and stays active with exercise. IUD in place. She is currently . She reports a little weight gain despite going to the gym, admits to drinking carbonated beverages such as sodas and alcohol. Currently is not sexually active. She denies vaginal itching and irritation. STI screening offered; she declined. Denies family history of breast, ovarian or colon cancer. Last pap smear 2020, negative. PFSH Medical History Lactating mother Depression Anxiety Surgical History Hx of wisdom tooth extraction Family History Father Asthma Mother Asthma Acute liver failure Paternal Grandfather Colon cancer Paternal Uncle Colon cancer Maternal Grandmother Vulva cancer Social History Household Members: Family Both parents involved: No Caregiver staying overnight: No Housing: House Are you a primary lawn care technician to a significant other at home: No Do you presently have visiting nurse or other home services: No 75 years or older and lives alone: No Alcohol intake: current Alcohol intake frequency: holidays/special occasions only Patient Tobacco Use Status: Never used Tobacco e-Cigarette/Vaping Use: Never Used service: No Current occupational status: employed 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 Gender identity: Female Cognitive needs: No Hearing needs: No Vision needs: No Female Reproductive History Menstrual Age of Menarche: 11 control method: progestin IUCD Total pregnancies: 6 Full term: 3 Number of Living Children: 3 Ab induced: 2 Ab spontaneous: 1 Date of last pap smear: 04/27/20 (negative) Review of Systems Const All systems reviewed & are unremarkable except as noted in HPI and below Reports as per HPI Eyes Reports no additional complaints ENT Reports no additional complaints Card Reports no additional complaints Resp Reports no additional complaints GI Reports as per HPI and Reports no additional complaints Reports as per HPI Musc Reports no additional complaints Skin/Breast Reports as per HPI Neuro Reports no additional complaints Psych Reports no additional complaints Endo Reports no additional complaints Dharmesh/Lymph Reports no additional complaints Aller/Immun Reports no additional complaints Physical Exam Vital Signs: Last Vital Signs BP 122/70 08/19/23 09:23 BMI result Body Mass Index 32.9 Const General: cooperative, healthy appearing, no acute distress, well developed and alert Orientation/consciousness: patient oriented x3 HEENT Head: Yes normal to inspection Eyes General: appearance normal, both eyes and all related structures Neck Neck: Yes normal visual inspection Thyroid: Thyroid normal Chest Chest palpation & inspection: normal inspection of the chest and other (no puckering, dimpling, peau de orange, retraction, discharge, masses) Breast/axilla inspection: normal inspection of the breasts Breast/axilla palpation: normal palpation of the breasts Resp Effort & Inspection: normal respiratory effort GI Inspection: Yes normal to inspection Palpation (GI): Soft to palpation Rectal Exam - Female: deferred General: Yes bladder normal to palpation External Female Exam: normal external appearance and normal appearance of the urethra Speculum Exam - Vagina: normal appearance of the vagina, normal palpation and normal vaginal discharge Speculum Exam - Cervix: normal appearance of the cervix, normal palpation and Other cervical findings present (IUD strings present) Bimanual exam- vagina & uterus: normal bimanual exam, normal palpation, uterine size normal, bladder normal to palpation, normal palpation and non-tender Bimanual Exam- Adnexa, other: no masses Skin General skin exam: no rashes or lesions noted Rashes: no rashes Neuro General: patient oriented x3 Cognition (Neuro): normal cognition Extrem General: Yes normal to inspection Psych Attitude: cooperative Thought process: Normal thought process present Assessment & Plan Assessment & Plan (1) Encounter for annual routine gynecological examination: Code(s): Z01.419 - Encounter for gynecological examination (general) (routine) without abnormal findings Category: Medical Plan: Discussed: Current recommendations for pap smears per ASCCP guidelines. Breast awareness and periodic breast exams. Maintain a healthy lifestyle including a well balanced diet and routine exercise. Encouraged her to omit sodas and alcohol from the diet, reviewed health benefits to improving diet. Use condoms for STI and prevention. Patient verbalizes understanding and agrees to the plan of care. She was given opportunity to ask questions and all questions were answered to the best of my ability. RTO in one year for annual gunner mate examination. This note is constructed using voice recognition software. While every effort has been made to ensure accuracy, dredge hand errors may have been included. Coding Level of Care Code Est Pt Prev Care 18-39y(99366) Diagnoses Encounter for annual routine gynecological examination Z01.419
== END 2023-08-19 10:00 | disposition home or self-care (01) ==
PROVIDERS: Visit Provider Advanced Practice Midwife
DX: Z01.419 Encounter for gynecological examination (general) (routine) without abnormal findings (principal)
CPT/HCPCS: 99395

== ENCOUNTER → 2023-08-19 09:19 | Outpatient (BNVA) | payer OTHER, SELFPAY | PROVIDERS: Visit Provider Advanced Practice Midwife | DX: Z01.419 Encounter for gynecological examination (general) (routine) without abnormal findings (principal) | CPT/HCPCS: 99395 ==

== ENCOUNTER 2023-08-27 09:43 | Outpatient (AMB) | payer OTHER, SELFPAY ==
[2023-08-27 10:04] VITALS: BP 124/72; PULSE 76; TEMP 36.7; O2SAT 98; BMI 32.9
--- NOTE | 2023-08-27 10:04 | AM.OFFWIN_ITS ---
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 Denies any changes to her diet. She also c/o epigastric region sharp pain. [facility] Medical History Lactating mother Depression Anxiety Surgical History Hx of wisdom tooth extraction Family History Father Asthma Mother Asthma Acute liver failure Paternal Grandfather Colon cancer Paternal Uncle Colon cancer Maternal Grandmother Vulva cancer Social History Household Members: Family Both parents involved: No Caregiver staying overnight: No Housing: House Are you a primary child care attendant school to a significant other at home: No Do you presently have visiting nurse or other home services: No 75 years or older and lives alone: No Alcohol intake: current Alcohol intake frequency: holidays/special occasions only Patient Tobacco Use Status: Never used Tobacco e-Cigarette/Vaping Use: Never Used service: No Current occupational status: employed 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 Gender identity: Female Cognitive needs: No Hearing needs: No Vision needs: No Female Reproductive History Menstrual Age of Menarche: 11 Review of Systems Const All systems reviewed & are unremarkable except as noted in HPI and below Physical Exam Vital Signs: Last Vital Signs Temp 98.0 F 08/27/23 10:04 Pulse 76 08/27/23 10:04 BP 124/72 08/27/23 10:04 Pulse Ox 98 08/27/23 10:04 Oxygen Delivery Method Room Air 08/27/23 10:04 BMI result Body Mass Index 32.9 Const General: No comfortable Nutritional Appearance: overweight Orientation/consciousness: patient oriented x3 GI Inspection: Yes normal to inspection Palpation (GI): Soft to palpation, not firm, nontender, no guarding, No hepatosplenomegaly present, no hernias and no masses Neuro General: patient oriented x3, gait normal and moves all extremities Psych Speech and movement: Normal speech and movement present Assessment & Plan Assessment & Plan (1) Gastritis: Code(s): K29.70 - Gastritis, unspecified, without bleeding Qualifiers: Chronicity: acute Gastritis bleeding: without bleeding Gastritis type: other gastritis Qualified Code(s): K29.00 - Acute gastritis without bleeding Plan: - Administered Zofran in office - Advised BLAND diet - Hydrate well and rest - Advised ED if symptoms worse in the next 24 hours. Orders: Orders AMB Ondansetron Adult Dose Today K29.00 - Acute gastritis without bleeding Medications: New metoclopramide HCl (Reglan) 10 mg PO Q6H PRN 30 tabs 0RF nausea and vomiting K29.00 - Acute gastritis without bleeding ondansetron 8 mg PO Q8H 30 tabs 0RF nausea and vomiting K29.00 - Acute gastritis without bleeding ondansetron 4 mg translingual ONCE 2 tabs 0RF vomiting K29.00 - Acute gastritis without bleeding Coding Level of Care Code Est Pt Level 3 (76143) Diagnoses Other acute gastritis without hemorrhage K29.00 Chronicity: acute Gastritis bleeding: without bleeding Gastritis type: other gastritis Time Spent (min) 15
== END 2023-08-27 10:51 | disposition home or self-care (01) ==
PROVIDERS: PCP Family Medicine; Visit Provider Nurse Practitioner Family
DX: K29.00 Acute gastritis without bleeding (principal)
CPT/HCPCS: 99213

== ENCOUNTER 2023-08-29 08:24 | Emergency (ER) | payer OTHER, SELFPAY ==
[2023-08-29 08:26] VITALS: BP 137/89; PULSE 74; RESP 18; TEMP 36.1; O2SAT 100; BMI 32.5
[2023-08-29 08:39] LABS: MANUAL DIFF FLAG NO
[2023-08-29 08:41] LABS: Basophils Percent Auto 0.2 % (0-2); Eosinophils Absolute Auto 0.1 X10*3/uL (0.0-0.4); Hematocrit 40.1 % (37.0-47.0); Hemoglobin 13.9 g/dl (12.0-16.0); Imm Gran Abs Auto 0.03 X10*3/uL (0.00-0.03); Imm Gran Pct Auto 0.2 % (0.0-0.4); Lymphocytes Absolute Auto 2.5 X10*3/uL (1.2-4.9); Mean Corpuscular HGB Conc 34.7 g/dl (31.0-35.0); Mean Corpuscular Hemoglobin 30.4 pg (27.0-33.0); Mean Corpuscular Volume 87.7 fL (80.0-98.0); Mean Platelet Volume 9.3 fL (9.4-12.3); Monocytes Absolute Auto 1.3 X10*3/uL (0.1-1.2); Neutrophils Absolute Auto 8.6 x10*3/uL (2.0-8.3); Neutrophils Percent Auto 68.6 % (45-73); Platelet Count 248 X10*3/uL (160-400); Red Blood Count 4.57 X10*6/uL (4.20-5.50); Red Cell Distribution Width 12.7 % (11.0-16.0); White Blood Count 12.6 X10*3/uL (4.8-10.8)
[2023-08-29 08:54] LABS: Alanine Aminotransferase 37 U/L (0-31); Albumin Level 4.3 g/dL (3.5-5.0); Alkaline Phosphatase 78 U/L (39-117); Anion Gap 11 (12-20); Aspartate Amino Transferase 31 U/L (5-31); Bilirubin Direct 0.2 mg/dL (0.0-0.5); Bilirubin Total 0.5 mg/dL (0.0-1.0); Blood Urea Nitrogen 10 mg/dL (9-16); Calcium 9.4 mg/dL (8.4-10.2); Carbon Dioxide 27 mmol/L (22-29); Chloride 102 mmol/L (96-108); Creatinine Clr Calc Pharmacy 86.5; Estimated Glomerular Filt Rate > 60; Glucose Random 97 mg/dL (60-115); Lipase 23 U/L (8-78); Sodium 136 mmol/L (135-145)
[2023-08-29 09:05] LABS: COVID-19 Test Negative (Negative); IDNOW Serial# 152EDE1D
[2023-08-29 09:06] LABS: IDNOW Serial# 9DB6401D; Influenza A Negative (Negative); Influenza B2 Negative (Negative)
== END 2023-08-29 11:01 | disposition left against medical advice (07) ==
PROVIDERS: Emergency Provider Emergency Medicine; PCP Family Medicine
DX: R10.10 Upper abdominal pain, unspecified (principal); R11.2 Nausea with vomiting, unspecified
CPT/HCPCS: 80053; 82248; 83690; 85025; 87502; 87635; 99281; 99282; 99283

== ENCOUNTER 2024-07-05 15:03 | Outpatient (REF) | payer OTHER, SELFPAY ==
--- OUTSIDE RECORDS SUMMARY | 2024-07-05 17:23 | XMS_ITS | Clinical Summary ---
Author Organization [facility] Address [address] [place] [address] Phone Care Team Providers Care Testing Engineer Name Role Phone Rosina Corea NP Primary Care Provider [phone] Social History Tobacco Use Types Packs/Day Years [...] age to complete this topic Care Teams Testing Engineer Relationship Specialty Start Date End Date Rosina Corea NP PCP - General 11/15/16
[2024-07-05 18:21] LABS: Appearance Urine Clear; Color Urine Dark Yellow; Glucose Urine UA Negative (Negative); Leukocyte Esterase Urine Small (1+) (Negative); Nitrite Urine Positive (Negative); PH 7.5 (5.0-9.0); UMIC TRIGGER UACC YES; Urine Blood Negative (Negative); Urine Ketones Negative (Negative); Urine Protein Negative (Neg-Trace)
[2024-07-05 18:55] LABS: Bacteria Urine None Seen (None Seen); Hyaline Casts Urine 0-2 /LPF (0-2); RBC Urine 0-2 /HPF (0-2); Squamous Epithelial Cell Urine 0-2 /HPF (0-2); UACC Culture Trigger YES; WBC Urine 0-5 /HPF (0-5)
== END 2024-07-05 15:04 | disposition home or self-care (01) ==
LOC: HO.LAB 15:03
PROVIDERS: PCP Family Medicine; Visit Provider Family Medicine
DX: N39.0 Urinary tract infection, site not specified (principal)
CPT/HCPCS: 81001; 87086; 96127; 99212

== ENCOUNTER 2024-07-05 15:03 | Outpatient (AMB) | payer OTHER, SELFPAY ==
--- NOTE | 2024-07-05 15:07 | MHC.PC.OV ---
Vital Signs 07/05/24 15:22 Height 5 ft 1 in Weight 176 lb 3 oz BMI 33.3 BP 120/70 Blood Pressure Location Rt brachial Position Sitting Respiration 14 Pulse 78 Pulse Source Pulse Oximeter Pulse Oximetry (%) 98 Oxygen Delivery Method Room Air Intake Visit Reasons: UTI sx Intake Note: uti sx Allergies latex Allergy (Unknown, Verified 07/05/24 15:20) Unknown hydromorphone [From DILAUDID] Adverse Reaction (Intermediate, Verified 07/05/24 15:20) ANXIETY Medication List - Last Reviewed 07/05/24 by KELVIN Jean levonorgestrel (Mirena) intrauterine ondansetron 8 mg PO Q8H PNV 656-vepk-mgpmo-dha-lutein 27 mg iron-800 mcg-200 mg pkgs PO Tobacco use date assessed: 08/13/23 Dental Screening Dental Screen Date: 08/13/23 HPI UTI sx HPI Details 38 y/o female presents today with complaints of urinary symptoms. Frequency/Urgency PFSH Medical History Lactating mother Depression Anxiety Surgical History Hx of wisdom tooth extraction Family History Father Asthma Mother Asthma Acute liver failure Paternal Grandfather Colon cancer Paternal Uncle Colon cancer Maternal Grandmother Vulva cancer Social History Household Members: Family Both parents involved: No Caregiver staying overnight: No Housing: House Are you a primary hemodialysis patient care specialist to a significant other at home: No Do you presently have visiting nurse or other home services: No 75 years or older and lives alone: No Alcohol intake: current Alcohol intake frequency: holidays/special occasions only Patient Tobacco Use Status: Never used Tobacco e-Cigarette/Vaping Use: Never Used service: No Current occupational status: employed 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 1. Little interest or pleasure in doing things: not at all 2. Feeling down, depressed, or hopeless: not at all 3. Trouble falling or staying asleep, or sleeping too much: not at all 4. Feeling tired or having little energy: not at all 5. Poor appetite or overeating: not at all 6. Feeling bad about yourself - or that you are a failure or have let yourself or your family down: not at all 7. Trouble concentrating on things, such as reading the newspaper or watching television: not at all 8. Moving or speaking so slowly that other people could have noticed. Or the opposite - being so fidgety or restless that you have been moving around a lot more than usual: not at all 9. Thoughts that you would be better off or of hurting yourself in some way: not at all Total score: 0 Depression Screening Interpretation: Negative Depression Screening Done: Yes 94881 - PHQ-9 Billing: Yes Source: Developed by Drs. Talat Phoenix, Kathryn Penaloza, Audie Talbert and colleagues, with an educational jaswinder from [employer]. Thrive Questionnaire Date Thrive assessed: 07/05/24 I am a: Patient What is your living situation today?: I have a steady place to live Within the past 12 months, did the food you bought not last and you didn't have the money to get more?: Never true Within the past 12 months, did you worry whether your food would run out before you got money to buy more?: Never true Do you have trouble paying for medicines?: No Do you have trouble getting transportation to medical appointments?: No Do you have trouble paying your heating and electricity bill?: No Do you have trouble taking care of your child, family member or friend?: No Do you have trouble with day-to-day activities such as bathing, preparing meals, shopping, managing finances, etc.?: No Are you currently unemployed and looking for a job?: No Are you interested in more education?: No Please select the resources that you would like help with: None Currently or been in a relationship where the following occur: No concerns reported and I choose not to answer THRIVE Score: 0 AUDIT C Alcohol Use Questionnaire (AUDIT-C) 2. How many drinks containing alcohol do you have on a typical day when you are drinking?: 1 or 2 Total Score: 0 CARLINE-7 AMB Questionnaire CARLINE-7 Date CARLINE - 7 assessed: 07/05/24 Feeling nervous, anxious, or on edge: 0 = Not at all Not being able to stop or control worryin = Not at all Worrying too much about different things: 0 = Not at all Trouble relaxin = Not at all Being so restless that it is hard to sit still: 0 = Not at all Becoming easily annoyed or irritable: 0 = Not at all Feeling afraid as if something awful might happen: 0 = Not at all Total CARLINE-7 score (0-4 normal; 5-9 mild; 10-14 moderate; 15-21 severe): 0 Source: Developed by Drs. Talat Phoenix, Kathryn Penaloza, Audie Talbert and colleagues, with an educational jaswinder from [employer]. CARLINE-7 Assessment Billing CARLINE-7 Assessment Tool: CARLINE-7 Assessment 01065 Review of Systems Const Denies chills, Denies fatigue, Denies fever(s), Denies headache(s) and Denies weakness ENT Denies dizziness and Denies headache(s) Card Denies dyspnea Resp Denies cough, Denies dyspnea, Denies wheezing and Denies other (shortness of breath) Musc Denies numbness and Denies tingling Neuro Denies dizziness, Denies headache(s), Denies numbness, Denies tingling and Denies weakness Psych Denies anxiety and Denies depression Endo Denies fatigue Aller/Immun Denies wheezing Physical exam (Primary Care) Tobacco/Smoking Status: Tobacco use Status Tobacco use date assessed 08/13/23 07/05/24 15:09 Patient Tobacco Use Status Never used Tobacco 07/05/24 15:09 e-Cigarette/Vaping Use Never Used 07/05/24 15:09 PHQ-9: PHQ-9 Score PHQ-9: Total score 0 07/05/24 15:09 Depression Screening Interpretation: Negative Thrive Assessment: Date of Thrive Assessment Date Thrive assessed 07/05/24 07/05/24 15:09 Currently or been in a relationship where the following occur: No concerns reported and I choose not to answer Const General: well developed; No acute distress Nutritional Appearance: well nourished Orientation/consciousness: patient oriented x3 [facility] Head: Yes normocephalic and Yes atraumatic Eyes General: appearance normal, both eyes and all related structures Pupils: Equal, round and reactive pupils present EOM: EOMs intact bilaterally Resp Effort & Inspection: normal respiratory effort Neuro General: patient oriented x3 and gait normal Cranial nerves: Yes Equal, round and reactive pupils present Psych Affect: normal affect Coding Level of Care Code Est Pt Level 3 (56288) Diagnoses UTI (urinary tract infection) N39.0 Additional Codes CARLINE-7 Assessment Billing - CARLINE-7 Assessment Tool: CARLINE-7 Assessment 86705 ([id number]) PHQ-9 - 97959 - PHQ-9 Billing: Yes ([id number]) Assessment & Plan Assessment & Plan (1) UTI (urinary tract infection): Code(s): N39.0 - Urinary tract infection, site not specified Category: Medical Plan: Probable?UTI Start?Bactrim Will?send?urine?to?the?lab Hydrate?well Call?or?return?to?office?if?not?improving Orders: Orders UA CC w/rflx Micro + Cult Today N39.0 - Urinary tract infection, site not specified, Z00.00 - Encounter for general adult medical examination without abnormal findings Medications: New sulfamethoxazole-trimethoprim 800-160 mg (Bactrim DS) 1 tab PO Q12H 5 days 10 tabs 0RF
[2024-07-05 15:22] VITALS: BP 120/70; PULSE 78; RESP 14; O2SAT 98; BMI 33.3
--- OUTSIDE RECORDS SUMMARY | 2024-07-05 17:01 | XMS_ITS | Clinical Summary ---
Author Organization [facility] Address [address] [place] [address] Phone Care Team Providers Care Solar Design Engineer Name Role Phone Rosina Corea NP Primary Care Provider [phone] Social History Tobacco Use Types Packs/Day Years Used Date Smoking Tobacco: Never Assessed Comments Unknown Sex and Gender Information Value Date Recorded Sex Assigned at Not on file Legal Sex Female 4:31 PM EDT Gender Identity Not on file Sexual Orientation Not on file Plan of Treatment Health Maintenance Due Date Last Done Comments MMR Vaccines (1 of 1 - Stand daniel series) 12/27/1987 Varicella Vaccines (1 of 2 - 13+ 2-dose series) 12/27/1999 DTaP,Tdap,and Td Vaccines (1 - Tdap) 2004 Hepatitis B Vaccines (1 of 3 - 19+ 3-dose series) 2005 Influenza Vaccines (#1) 2023 COVID-19 Vaccine ( - 2023-2 5 season) 2023 HIB Vaccines Aged Out No longer eligi ble based on patient's age to complete this topic HPV Vaccines Aged Out No longer eligi ble based on patient's age to complete this topic Hepatitis A Vaccines Aged Out No long er eligible based on patient's age to complete this topic IPV Vaccines Aged Out No longer eligi ble based on patient's age to complete this topic Men B Vaccine Aged Out No longer elig ible based on patient's age to complete this topic Meningococcal Vaccine Aged Out No carlitos tono eligible based on patient's age to complete this topic Pneumococcal Vaccine Aged Out No long er eligible based on patient's age to complete this topic Care Teams Solar Design Engineer Relationship Specialty Start Date End Date Rosina Corea NP PCP - General 11/15/16
== END 2024-07-05 16:32 | disposition home or self-care (01) ==
LOC: HO.HMCFM 15:05
PROVIDERS: PCP Family Medicine; Visit Provider Family Medicine
DX: N39.0 Urinary tract infection, site not specified (principal)

== ENCOUNTER 2024-08-24 08:49 | Outpatient (REF) | payer OTHER, SELFPAY ==
--- OUTSIDE RECORDS SUMMARY | 2024-08-24 09:58 | XMS_ITS | Clinical Summary ---
Author Organization [facility] Address [address] [place] [address] Phone Care Team Providers Care Ballaster Name Role Phone Rosina Corea NP Primary Care Provider [phone] Social History Tobacco Use Types Packs/Day Years [...] age to complete this topic Care Teams Ballaster Relationship Specialty Start Date End Date Rosina Corea NP PCP - General 11/15/16
[2024-08-24 15:55] LABS: Bacterial Vaginosis PCR NEGATIVE (Negative); Candida Group PCR NOT DETECTED (Not Detect); Candida glab krusei PCR NOT DETECTED (Not Detect); Trichomonas vaginalis PCR NOT DETECTED (Not Detect)
[2024-08-24 16:27] LABS: CT PCR NOT DETECTED (Not Detect.); NG PCR NOT DETECTED (Not Detect.)
== END 2024-08-24 08:50 | disposition home or self-care (01) ==
LOC: HO.LAB 08:49
PROVIDERS: PCP Family Medicine; Visit Provider Advanced Practice Midwife
DX: Z01.419 Encounter for gynecological examination (general) (routine) without abnormal findings (principal); Z20.2 Contact with and (suspected) exposure to infections with a predominantly sexual mode of transmission; Z97.5 Presence of (intrauterine) contraceptive device
CPT/HCPCS: 81515; 87491; 87591; 99395; 99459

== ENCOUNTER 2024-08-24 08:49 | Outpatient (AMB) | payer OTHER, SELFPAY ==
--- NOTE | 2024-08-24 08:49 | MHC.OFFVIS ---
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 Doing well with obstetrics gynecology md concerns: Mirena user, feels weight gain and trouble losing weight with use. Use the ParaGard in the past considering a change tothat device in the future. Currently is not sexually active. She denies vaginal itching or irritation. STI screening offered; she accepts, declines bloodwork. She tries to eat healthy and stays active with exercise. Lactating mother. Denies family history of breast or ovarian. FH colon cancer. Last pap smear 2020, negative. [facility] Medical History Lactating mother Depression Anxiety Surgical History Hx of wisdom tooth extraction Family History Father Asthma Mother Asthma Acute liver failure Paternal Grandfather Colon cancer Paternal Uncle Colon cancer Maternal Grandmother Vulva cancer Social History Household Members: Family Housing: House Are you a primary day care provider to a significant other at home: No Do you presently have visiting nurse or other home services: No Alcohol intake: current Alcohol intake frequency: holidays/special occasions only Patient Tobacco Use Status: Never used Tobacco e-Cigarette/Vaping Use: Never Used service: No Current occupational status: employed 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 Gender identity: Female Cognitive needs: No Hearing needs: No Vision needs: No Female Reproductive History Menstrual Age of Menarche: 11 control method: progestin IUCD (Mirena 09/06/22) Total pregnancies: 6 Full term: 3 Number of Living Children: 3 Ab induced: 2 Ab spontaneous: 1 Date of last pap smear: 04/26/20 (neg pap and hpv) Review of Systems Const All systems reviewed & are unremarkable except as noted in HPI and below Reports as per HPI Eyes Reports no additional complaints ENT Reports no additional complaints Card Reports no additional complaints Resp Reports no additional complaints GI Reports as per HPI and Reports no additional complaints Reports as per HPI Musc Reports no additional complaints Skin/Breast Reports as per HPI Neuro Reports no additional complaints Psych Reports no additional complaints Endo Reports no additional complaints Dharmesh/Lymph Reports no additional complaints Aller/Immun Reports no additional complaints Physical Exam Vital Signs: BMI result Body Mass Index 34.2 Const General: cooperative, healthy appearing, no acute distress, well developed and alert Orientation/consciousness: patient oriented x3 HEENT Head: Yes normal to inspection Eyes General: appearance normal, both eyes and all related structures Neck Neck: Yes normal visual inspection Thyroid: Thyroid normal Chest Chest palpation & inspection: normal inspection of the chest and other (no puckering, dimpling, peau de orange, retraction, discharge, masses) Breast/axilla inspection: normal inspection of the breasts Breast/axilla palpation: normal palpation of the breasts Resp Effort & Inspection: normal respiratory effort GI Inspection: Yes normal to inspection Palpation (GI): Soft to palpation Rectal Exam - Female: deferred General: Yes bladder normal to palpation External Female Exam: normal external appearance and normal appearance of the urethra Speculum Exam - Vagina: normal appearance of the vagina, normal palpation, normal vaginal discharge and vaginal bleeding (Small amount at os) Speculum Exam - Cervix: normal appearance of the cervix, normal palpation and Other cervical findings present (IUD string short half a cm on left side) Bimanual exam- vagina & uterus: normal bimanual exam, normal palpation, uterine size normal, bladder normal to palpation, normal palpation and non-tender Bimanual Exam- Adnexa, other: no masses OB/external & speculum: vaginal bleeding (Small amount at os) Skin General skin exam: no rashes or lesions noted Rashes: no rashes Neuro General: patient oriented x3 Cognition (Neuro): normal cognition Extrem General: Yes normal to inspection Psych Attitude: cooperative Thought process: Normal thought process present Assessment & Plan Assessment & Plan (1) Encounter for annual routine gynecological examination: Code(s): Z01.419 - Encounter for gynecological examination (general) (routine) without abnormal findings Category: Medical Plan Discussed: Current recommendations for pap smears per ASCCP guidelines. Breast awareness and periodic breast exams. Maintain a healthy lifestyle including a well balanced diet and routine exercise. Use condoms for STI and prevention. Monitor menstrual bleeding if considering changing to a ParaGard IUD, pre procedure counseling provided today including having something to eat and drink and taking ibuprofen or Tylenol 1 hour before procedure. Patient verbalizes understanding and agrees to the plan of care. She was given opportunity to ask questions and all questions were answered to the best of my ability. RTO in one year for annual obstetrics gynecology md examination. This note is constructed using voice recognition software. While every effort has been made to ensure accuracy, slot machine mechanic errors may have been included. Coding Level of Care Code Est Pt Prev Care 18-39y(24818) Diagnoses Encounter for annual routine gynecological examination Z01.419
[2024-08-24 08:50] VITALS: BP 98/73; BMI 34.2
--- OUTSIDE RECORDS SUMMARY | 2024-08-24 09:04 | XMS_ITS | Clinical Summary ---
Author Organization [facility] Address [address] [place] [address] Phone Care Team Providers Care Lime Mixer Name Role Phone Rosina Corea NP Primary Care Provider [phone] Social History Tobacco Use Types Packs/Day Years [...] age to complete this topic Care Teams Lime Mixer Relationship Specialty Start Date End Date Rosina Corea NP PCP - General 11/15/16
== END 2024-08-24 09:16 | disposition home or self-care (01) ==
LOC: HO.HWS 08:49
PROVIDERS: PCP Family Medicine; Visit Provider Advanced Practice Midwife
DX: Z01.419 Encounter for gynecological examination (general) (routine) without abnormal findings (principal)
CPT/HCPCS: 99395; 99459

== ENCOUNTER 2024-08-24 09:14 | Outpatient (REF) | payer OTHER, SELFPAY | END 2024-08-24 09:15 | disposition home or self-care (01) | LOC: HO.LNP 09:14 | PROVIDERS: Visit Provider Advanced Practice Midwife | DX: Z13.89 Encounter for screening for other disorder (principal) ==

== ENCOUNTER 2024-12-09 08:02 | Outpatient (AMB) | payer OTHER, SELFPAY ==
[2024-12-09 08:04] VITALS: BP 120/82; PULSE 76; RESP 16; TEMP 36.4; O2SAT 96; BMI 33.1
--- NOTE | 2024-12-09 08:04 | AM.OFFWIN_ITS ---
Intake Vital Signs 12/09/24 08:04 Height 5 ft 1 in Weight 175 lb BMI 33.1 BP 120/82 Blood Pressure Location Rt brachial Position Sitting Respiration 16 Pulse 76 Pulse Source Pulse Oximeter Temp 97.6 F Temp Source Oral Pulse Oximetry (%) 96 Oxygen Delivery Method Room Air Intake Visit Reasons: EP-whole body poison santa Patient Tobacco Use Status: Never used Tobacco Allergies latex Allergy (Unknown, Verified 12/09/24 08:06) Unknown hydromorphone (From DILAUDID) Adverse Reaction (Intermediate, Verified 12/09/24 08:06) ANXIETY HPI HPI Comments History of Present Illness Details 38 y/o Female Patient who presents to [facility] walk in clinic with c/o Rash ?Poison Santa covering her Entire body. She was working in her Garden/Yard yesterday and believes she might have got in-contact with the plant. C/o severe itching, hives and Redness. She did use Benadrly once but did not like it, because she became Sleepy. [facility] Medical History (Updated 12/09/24 @ 08:22 by Jessica Villalobos NP) Contact dermatitis Lactating mother Depression Anxiety Surgical History Hx of wisdom tooth extraction Family History Father Asthma Mother Asthma Acute liver failure Paternal Grandfather Colon cancer Paternal Uncle Colon cancer Maternal Grandmother Vulva cancer Social History Household Members: Family Both parents involved: No Caregiver staying overnight: No Housing: House Are you a primary career development facilitator to a significant other at home: No Do you presently have visiting nurse or other home services: No 75 years or older and lives alone: No Alcohol intake: current Alcohol intake frequency: holidays/special occasions only Patient Tobacco Use Status: Never used Tobacco e-Cigarette/Vaping Use: Never Used service: No Current occupational status: employed 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 Gender identity: Female Cognitive needs: No Hearing needs: No Vision needs: No Female Reproductive History Menstrual Age of Menarche: 11 Review of Systems Const All systems reviewed & are unremarkable except as noted in HPI and below Physical Exam Vital Signs: Last Vital Signs Temp 97.6 F 12/09/24 08:04 Pulse 76 12/09/24 08:04 Resp 16 12/09/24 08:04 BP 120/82 12/09/24 08:04 Pulse Ox 96 12/09/24 08:04 Oxygen Delivery Method Room Air 12/09/24 08:04 BMI result Body Mass Index 33.1 Const General: no acute distress; No comfortable Nutritional Appearance: overweight Orientation/consciousness: patient oriented x3 Resp Effort & Inspection: normal respiratory effort Auscultation: clear to auscultation bilaterally Cardio Heart sounds: S1 normal heart sound present and S2 normal heart sound present Skin General skin exam: erythema Rashes: rashes noted (Erythematous Hives covering her body.) Neuro General: patient oriented x3, gait normal and moves all extremities Psych Speech and movement: Normal speech and movement present Assessment & Plan Assessment & Plan (1) Contact dermatitis: Code(s): L25.9 - Unspecified contact dermatitis, unspecified cause Qualifiers: Contact dermatitis trigger: non-food plants Contact dermatitis type: i rritant Qualified Code(s): L24.7 - Irritant contact dermatitis due to plants, except food Plan: Ordered Topical/oral Steroids. Ordered Hydroxyzine TID. Advised to use; Calamine lotion or zinc oxide cream, Oatmeal bath Medications: New prednisone 50 mg PO DAILY 5 tabs 0RF 5 days L24.7 - Irritant contact dermatitis due to plants, except food triamcinolone acetonide 0.1% 1 appl topical BID 80 grams 1RF L24.7 - Irritant contact dermatitis due to plants, except food hydroxyzine HCl 25 mg PO TID 30 tabs 0RF L24.7 - Irritant contact dermatitis due to plants, except food Coding Level of Care Code Est Pt Level 4 (84111) Diagnoses Irritant contact dermatitis due to plants, except food L24.7 Contact dermatitis trigger: non-food plants Contact dermatitis type: irritant Time Spent (min) 20
--- OUTSIDE RECORDS SUMMARY | 2024-12-09 08:12 | XMS_ITS | Clinical Summary ---
Author Organization [facility] Address [address] [place] [address] Phone Care Team Providers Care Engraver Apprentice Decorative Name Role Phone Rosina Corea NP Primary Care Provider [phone] Social History Tobacco Use Types Packs/Day Years [...] of 3 - 19+ 3-dose series) 2005 HPV Vaccines (1 - 3-dose SCD M series) 2013 Influenza Vaccines (#1) 2024 COVID-19 Vaccine ( - 2023-2 5 season) 2024 HIB Vaccines Aged Out No longer eligi [...] age to complete this topic Care Teams Engraver Apprentice Decorative Relationship Specialty Start Date End Date Rosina Corea NP PCP - General 11/15/16
== END 2024-12-09 08:27 | disposition home or self-care (01) ==
PROVIDERS: PCP Family Medicine; Visit Provider Nurse Practitioner Family
DX: L24.7 Irritant contact dermatitis due to plants, except food (principal)

== ENCOUNTER → 2024-12-09 08:02 | Outpatient (BNVA) | payer OTHER, SELFPAY | PROVIDERS: PCP Family Medicine; Visit Provider Nurse Practitioner Family | DX: L24.7 Irritant contact dermatitis due to plants, except food (principal) | CPT/HCPCS: 99212 ==